=== PATIENT | male | born 1955 | race Two or more races ===

== ENCOUNTER 2024-10-20 13:01 | Emergency (ER) | payer MEDICARE, OTHER ==
[2024-10-20 13:36] VITALS: BP 157/90; PULSE 58; RESP 16; TEMP 98.4
--- NOTE | 2024-10-20 14:03 | ED ---
Lower Extremity Injury HPI - General Source: patient, RN notes reviewed Mode of arrival: ambulatory Limitations: no limitations <Mayte Santos - Last Filed: 10/20/24 14:01> <Ena Andrea - Last Filed: 10/20/24 16:55> - General Chief Complaint: Extremity Injury, Lower Stated Complaint: fall Time Seen by Provider: 10/20/24 13:50 - History of Present Illness Initial Comments: Quick Note: This is a 69-year-old male who presents to the emergency department for right leg pain. Patient slipped on ice this morning when he was out for a walk and landed on his right side. He has since had pain to the lower back, right buttocks and right upper leg. Denies hitting his head or any loss of consciousness. Not taking any blood thinners. States that the pain is making it difficult to ambulate. (Mayte Santos) This is a 69-year-old male presents the emergency department after a fall. Yovani aleman states that this morning he went outside when he slipped on ice causing his legs to go up from under him falling onto his right side specifically his right hip and injuring his lower back. Since the time of the injury patient has been experiencing intermittent pain with ambulation specifically of the right hip and lower spine. He denies hitting his head or loss conscious the time of the injury. Denies blood thinners. Denies loss of bladder bowel continence or saddle anaesthesias after the event. (Ena Andrea) - Related Data Allergies Allergy/AdvReac Type Severity Reaction Status Date / Time No Known Allergies Allergy Verified 10/20/24 13:36 Review of Systems ROS Other: All systems not noted in ROS Statement are negative. <Mayte Santos - Last Filed: 10/20/24 14:01> ROS Other: All systems not noted in ROS Statement are negative. <Ena Andrea - Last Filed: 10/20/24 16:55> ROS Statement: Those systems with pertinent positive or pertinent negative responses have been documented in the HPI. Past Medical History History of Any Multi-Drug Resistant Organisms: None Reported Smoking Status: Never smoker Past Alcohol Use History: Occasional Past Drug Use History: None Reported <Mayte Santos - Last Filed: 10/20/24 14:01> General Exam Limitations: no limitations <Mayte Santos - Last Filed: 10/20/24 14:01> General appearance: alert, in no apparent distress Eye exam: Present: normal appearance, PERRL, EOMI. Absent: scleral icterus, conjunctival injection, periorbital swelling Neck exam: Present: normal inspection. Absent: tenderness, meningismus, lymphadenopathy Respiratory exam: Present: normal lung sounds bilaterally. Absent: respiratory distress, wheezes, rales, rhonchi, stridor Cardiovascular Exam: Present: regular rate, normal rhythm, normal heart sounds. Absent: systolic murmur, diastolic murmur, rubs, gallop, clicks GI/Abdominal exam: Present: soft, normal bowel sounds. Absent: distended, tenderness, guarding, rebound, rigid Right Hip exam: Present: full ROM, tenderness. Absent: swelling, abrasion, ecchymosis Back exam: Present: normal inspection Neurological exam: Present: alert, oriented X3, CN II-XII intact <Ena Andrea - Last Filed: 10/20/24 16:55> - General Exam Comments Initial Comments: Visual Physical Exam Vital signs reviewed General: Well-appearing, nontoxic, no acute distress. Head: Normocephalic, atraumatic Eyes: PERRLA, EOMI ENT: Airway patent Chest: Nonlabored breathing Skin: No visual rash, normal skin tone Neuro: Alert and oriented 3 Musculoskeletal: No gross abnormalities (Mayte Santos) Course Vital Signs 10/20/24 13:31 Temperature 98.4 F Pulse Rate 58 L Respiratory 16 Rate Blood Pressure 157/90 O2 Sat by Pulse 97 Oximetry Medical Decision Making <Mayte Santos - Last Filed: 10/20/24 14:01> <Ena Andrea - Last Filed: 10/20/24 16:55> - Medical Decision Making I performed the QuickNote portion of this chart. Signed Mayte Santos PA-C. (Mayte Santos) Was pt. sent in by a medical professional or institution (YOVANI Kwok, FINAL APPLICATION REVIEWER, urgent care, hospital, or longterm...) When possible be specific @ -No Did you speak to anyone other than the patient for history (EMS, parent, family, police, friend...)? What history was obtained from this source @ -No Did you review nursing and triage notes (agree or disagree)? Why? @ -I reviewed and agree with nursing and triage notes Were old charts reviewed (outside hosp., previous admission, EMS record, old EKG, old radiological studies, urgent care reports/EKG's, longterm records)? Report findings @ -No old charts were reviewed Differential Diagnosis (chest pain, altered mental status, abdominal pain women, abdominal pain men, vaginal bleeding, weakness, fever, dyspnea, syncope, heada yael, dizziness, GI bleed, back pain, seizure, CVA, palpatations, mental health, musculoskeletal)? @ -Differential Musculoskeletal Muscular strain, contusion, ligament sprain, fracture, arthritis, septic arthritis, bursitis, cellulitis, muscle spasm, nerve compression, DVT, arterial occlusion, herpes zoster, electrolyte abnormality, tumor.... This is not meant to be in all inclusive list EKG interpreted by me (3pts min.). @ -None X-rays interpreted by me (1pt min.). @ -X-ray of the lumbar spine reveals no acute fracture or dislocation with multilevel degenerative disc disease X-ray of the right hip/AP pelvis and right femur no acute osseous pathology. CT interpreted by me (1pt min.). @ -None done U/S interpreted by me (1pt. min.). @ -None done What testing was considered but not performed or refused? (CT, X-rays, U/S, labs)? Why? @ -None What meds were considered but not given or refused? Why? @ -None Did you discuss the management of the patient with other professionals (professionals i.e. , PA, FINAL APPLICATION REVIEWER, lab, RT, psych nurse, social media marketing analyst, lasting room machine operator, teacher, customer service security officer, hospice case manager)? Give summary @ -No Was smoking cessation discussed for >3mins.? @ -No Was critical care preformed (if so, how long)? @ -No Were there social determinants of health that impacted care today? How? (Homelessness, low income, unemployed, alcoholism, drug addiction, transportati on, low edu. Level, literacy, decrease access to med. care, custodial, rehab)? @ -No Was there de-escalation of care discussed even if they declined (Discuss DNR or withdrawal of care, Hospice)? DNR status @ -No What co-morbidities impacted this encounter? (DM, HTN, Smoking, COPD, CAD, Cancer, CVA, ARF, Chemo, Hep., AIDS, mental health diagnosis, sleep apnea, morbid obesity)? @ -None Was patient admitted / discharged? Hospital course, mention meds given and route, prescriptions, significant lab abnormalities, going to OR and other pertinent info. @ -Discharge. 69-year-old male presenting after a fall. Patient was originally evaluated as a quick note where imaging was ordered. On my evaluation the patient is resting comfortably no signs acute distress. His vitals are stable. He is able to ambulate with no difficulties. There are no neurovascular deficits on examination and no overlying skin changes. Patient's x-rays no acute process. Recommend patient continue to rest, ice, use Tylenol Motrin as needed for pain relief. Recommend that patient follows up with primary care provider within the next week for further evaluation. Discussed with Dr. Ghosh Undiagnosed new problem with uncertain prognosis? @ -No Drug Therapy requiring intensive monitoring for toxicity (Heparin, Nitro, Insulin, Cardizem)? @ -No Were any procedures done? @ -No Diagnosis/symptom? @ -Fall, hip contusion Acute, or Chronic, or Acute on Chronic? @ -Acute Uncomplicated (without systemic symptoms) or Complicated (systemic symptoms)? @ -Uncomplicated Side effects of treatment? @ -No Exacerbation, Progression, or Severe Exacerbation? @ -No Poses a threat to life or bodily function? How? (Chest pain, [place], [place], pneumonia, PE, COPD, DKA, ARF, appy, cholecystitis, CVA, Diverticulitis, Homicidal, Suicidal, threat to staff... and all critical care pts) @ -No (Ena Andrea) Disposition <Mayte Santos - Last Filed: 10/20/24 14:01> Is patient prescribed a controlled substance at d/c from ED?: No Time of Disposition: 16:20 <Ena Andrea - Last Filed: 10/20/24 16:55> Clinical Impression: Fall, Contusion of hip Disposition: HOME SELF-CARE Condition: Good Instructions (If sedation given, give patient instructions): Fall Prevention for Older Adults (ED) Additional Instructions: Please return to the Emergency Department if symptoms worsen or any other concerns. Referrals: Andrew Downs MD [Primary Care Provider] - 1-2 days
--- NOTE | 2024-10-20 14:56 | XR ---
EXAMINATION TYPE: XR femur RT DATE OF EXAM: 10/20/2024 2:39 PM INDICATION: Patient age:Male; 69 years old; Reason for study: Fall; COMPARISON: Right hip radiograph 10/20/2024 TECHNIQUE: The right femur was examined in frontal and lateral projections. FINDINGS: No evidence of acute osseous pathology, joint dislocation, or soft tissue swelling. Pelvic phleboliths. IMPRESSION: No acute osseous pathology. [facility], , 10/20/2024 2:54 PM
--- NOTE | 2024-10-20 14:57 | XR ---
EXAMINATION TYPE: XR Hip RT and AP Pelvis DATE OF EXAM: 10/20/2024 2:39 PM INDICATION: Patient age:Male; 69 years old; Reason for study: Fall; PHH. COMPARISON: Right femur radiograph the same date. TECHNIQUE: The right hip was examined in the frontal and lateral projections and a AP pelvis. FINDINGS: No evidence of any acute osseous pathology, joint dislocation, or soft tissue swelling. Pel alexandra phleboliths. IMPRESSION: No acute osseous pathology. [facility], , 10/20/2024 2:55 PM
--- NOTE | 2024-10-20 15:00 | XR ---
EXAMINATION TYPE: XR lumbar spine 2 or 3V DATE OF EXAM: 10/20/2024 CLINICAL HISTORY: Fall, pain TECHNIQUE: Three views of the lumbar spine are submitted. COMPARISON: Pelvic radiograph of the same date FINDINGS: There are 5 lumbar type vertebral bodies identified. No acute fracture. Levocurvature of the lumbar s pine with apex at L3. Vertebral body heights are within normal limits. Multilevel disc space narrow ing with endplate sclerosis and anterior osteophytosis. This is most pronounced at L3-L4. The overly ing soft tissue appears unremarkable. IMPRESSION: 1. No acute fracture or dislocation is seen in the lumbar spine. 2. Multilevel degenerative disc disease which is most pronounced at L3-4. 3. Levoscoliotic curvature of the lumbar spine. [facility], , 10/20/2024 2:57 PM
== END 2024-10-20 19:25 | disposition home or self-care (01) ==
LOC: EC 13:01
DX: S70.01XA Contusion of right hip, initial encounter (principal); W00.0XXA Fall on same level due to ice and snow, initial encounter
CPT/HCPCS: 72100; 73502; 99283